=== PATIENT | female | born 1950 | race Caucasian/White ===

== ENCOUNTER 2018-02-13 16:31 | Emergency (ER) | payer OTHER, BC ==
[~2018-02-13] VITALS: Ht 157.5 cm; Wt 72.7 kg
[2018-02-13 17:33] LABS: BASOPHIL (%) 0.5 % (0-1); EOSINOPHIL (%) 0.8 % (0-5); EOSINOPHIL COUNT 0.1 K/uL (0-0.3); HEMATOCRIT 41.2 % (36.0-46.0); IMMATURE GRANULOCYTE (%) 0.3 % (0.0-0.7); LYMPHOCYTE (%) 12.4 % (15-42); LYMPHOCYTE COUNT 0.8 K/uL (1.0-2.8); MCH 31.1 PG (29.0-34.0); MCV 91.6 FL (83-99); MONOCYTE (%) 3.1 % (3-12); MONOCYTE COUNT 0.2 K/uL (0-0.8); NEUTROPHIL (%) 82.9 % (45-76); NEUTROPHIL COUNT 5.3 K/uL (1.8-6.4); PLATELET COUNT 221 K/uL (156-360); WHITE BLOOD COUNT 6.4 K/uL (4.1-10.2)
[2018-02-13 17:39] LABS: INTER. NORMALIZED RATIO 1.1
[2018-02-13 17:41] LABS: CHLORIDE 106 mEq/L (99-109); POTASSIUM 3.8 mEq/L (3.7-5.4); SODIUM 138 mEq/L (136-147)
[2018-02-13 17:42] LABS: PTT 33.4 SEC (25-37)
[2018-02-13 17:43] LABS: GLUCOSE 137 mg/dL (70-99)
[2018-02-13 17:46] LABS: CREATININE 0.8 mg/dL (0.6-1.3); GFR ESTIMATE (CALCULATED) > 59 mL/min/
[2018-02-13 17:47] LABS: UREA NITROGEN (BUN) 19 mg/dL (9-23)
[2018-02-13 17:53] LABS: TROP-I INTERPRETATION NEGATIVE; TROPONIN-I < 0.01 ng/mL (0.0-0.30)
[2018-02-13] MEDS ORDERED: VENTOLIN HFA18 GM IH (18:59)
[2018-02-13] MEDS ORDERED: PREDNISONE20 MG PO (18:59)
[2018-02-13] MEDS ORDERED: ZITHROMAX Z-PA250 MG PO (19:00)
[2018-02-13] MEDS ORDERED: HYCODAN SYRUP480 ML PO (19:00)
[2018-02-13 20:08] VITALS: BP 131/99
== END 2018-02-13 20:09 | disposition home or self-care (01) ==
LOC: EME 16:31
PROVIDERS: Emergency Medicine
DX: J02.9 Acute pharyngitis, unspecified (principal); F32.9 Major depressive disorder, single episode, unspecified; Z87.891 Personal history of nicotine dependence; Z85.42 Personal history of malignant neoplasm of other parts of uterus; Z98.1 Arthrodesis status
CPT/HCPCS: 71046; 71275; 80048; 83605; 84484; 85025; 85610; 85730; 87040; 87502; 93005; 94640; 99281; 99285; J1100

== ENCOUNTER 2018-05-14 10:16 | Day surgery (SDC) | payer OTHER, BC ==
[~2018-05-14 10:16] MED LIST: HYCODAN SYRUP480 ML PO; PREDNISONE20 MG PO; VENTOLIN HFA18 GM IH; ZITHROMAX Z-PA250 MG PO
[2018-05-14] MEDS ORDERED: FLUOXETINE HCL20 M1 PO (10:35)
[2018-05-14] MEDS ORDERED: VALACYCLOVIR500 MG PO (10:36)
[2018-05-14] MEDS ORDERED: GLUCOSAMINE DA1 EACH PO (10:37)
[2018-05-14] MEDS ORDERED: CALCIUM 600 +1 EA16 PO (10:38)
[2018-05-14] MEDS ORDERED: TEMAZEPAM30 MG PO (10:39)
[2018-05-14] MEDS ORDERED: MACULAR VITAMI1 EACH PO (10:39)
[2018-05-14] MEDS ORDERED: ATORVASTATIN CA40 MG PO (10:40)
[2018-05-14] MEDS ORDERED: ASPIRIN81 M2 PO (10:40)
== END 2018-05-14 17:15 | disposition home or self-care (01) ==
LOC: CATH 10:16
DX: I25.10 Atherosclerotic heart disease of native coronary artery without angina pectoris (principal); I25.84 Coronary atherosclerosis due to calcified coronary lesion; K44.9 Diaphragmatic hernia without obstruction or gangrene; E78.5 Hyperlipidemia, unspecified; R53.82 Chronic fatigue, unspecified; Z79.82 Long term (current) use of aspirin
CPT/HCPCS: 85347; 93005; C1769; C1887; J0153; J0583; J1644; J2250; J3010